=== PATIENT | male | born 1985 | race Caucasian/White ===

== ENCOUNTER 2017-08-28 06:26 | Day surgery (SDC) | payer OTHER ==
[2017-08-28] MEDS: BUPIVACAINE 0.5% (MPF) 30 ML INJ EPI
[2017-08-28] MEDS ORDERED: SOD CHLORIDE 0.9% 1,000 ML IV (08:00)
[2017-08-28] MEDS ORDERED: CEFAZOLIN 2 GM/50 ML (PMX) 50 ML IVPB (08:00)
[2017-08-28 09:44] LABS: ADD MAN DIFF? NO; BASOPHILS % 0.4 % (0.0-2.0); EOSINOPHILS # 0.1 10^3/ul (0.0-0.5); HEMATOCRIT 41.4 % (42.0-52.0); HEMOGLOBIN 13.9 g/dl (14.0-18.0); LYMPHOCYTES # 2.4 10^3/ul (0.8-2.9); LYMPHOCYTES % 34.8 % (15.0-51.0); MEAN CORPUSCULAR HEMOGLOBIN 29.1 pg (29.0-33.0); MEAN CORPUSCULAR HGB CONC 33.6 g/dl (32.0-37.0); MEAN CORPUSCULAR VOLUME 86.8 fl (82.0-101.0); MEAN PLATELET VOLUME 10.6 fl (7.4-10.4); MONOCYTE # 0.7 10^3/ul (0.3-0.9); MONOCYTES % 9.5 % (0.0-11.0); NEUTROPHIL # 3.6 10^3/ul (1.6-7.5); NEUTROPHILS % 52.9 % (39.0-77.0); PLATELET COUNT 226 10^3/UL (140-415); RED BLOOD COUNT 4.77 10^6/ul (4.70-6.10); RED CELL DISTRIBUTION WIDTH 12.7 % (11.5-14.5)
[2017-08-28 09:44] LABS: WHITE BLOOD COUNT 6.9 10^3/ul (4.8-10.8)
[2017-08-28 09:50] LABS: ALANINE AMINOTRANSFERASE 41 IU/L (13-69); ALBUMIN/GLOBULIN RATIO 1.25; ALKALINE PHOSPHATASE 97 IU/L (42-121); ANION GAP 14 (8-16); ASPARTATE AMINO TRANSFERASE 48 IU/L (15-46); BILIRUBIN,INDIRECT 0.2 mg/dl (0-1.1); BILIRUBIN,TOTAL 0.2 mg/dl (0.2-1.3); CARBON DIOXIDE 29 mmol/L (21-31); CHLORIDE 104 mmol/L (97-110); GLUCOSE 89 mg/dl (70-220); TOTAL PROTEIN 7.2 g/dl (6.1-8.1)
[2017-08-28 09:51] LABS: BLOOD UREA NITROGEN 9 mg/dl (7-20); CALCIUM 9.2 mg/dl (8.4-10.2); CREATININE 0.88 mg/dl (0.61-1.24); POTASSIUM 4.1 mmol/L (3.5-5.1); SODIUM 143 mmol/L (135-144)
[2017-08-28 09:57] LABS: INR 0.98; PARTIAL THROMBOPLASTIN TIME 30.6 Sec (25.0-35.0); PROTIME 13.1 Sec (11.9-14.9)
[2017-08-28] MEDS ORDERED: MIDAZOLAM 1 MG/ML 2 ML INJ ×4 (10:19→11:39)
[2017-08-28] MEDS ORDERED: ONDANSETRON 4 MG INJ (10:19)
[2017-08-28] MEDS ORDERED: EPHEDrine SULFATE 50 MG/5 ML SYG (10:19)
[2017-08-28] MEDS ORDERED: PROPOFOL 20 ML (10:19)
[2017-08-28] MEDS ORDERED: SUCCINYLCHOLINE CHLORIDE 100 MG/5 ML SYG IV (10:19)
[2017-08-28] MEDS ORDERED: FENTAnyl 50 MCG/ML VIAL (10:19)
[2017-08-28] MEDS ORDERED: ROCURONIUM 50 MG INJ (10:19)
[2017-08-28] MEDS ORDERED: METOCLOPRAMIDE 10 MG INJ (10:19)
[2017-08-28] MEDS ORDERED: HYDROCODONE/APAP (5/325) TAB PO (10:30)
[2017-08-28] MEDS ORDERED: CIPROFLOXACIN 400MG/D5W 200 ML (10:46)
[2017-08-28] MEDS ORDERED: CEFAZOLIN 1 GM INJ (10:49)
[2017-08-28] MEDS ORDERED: KETOROLAC 30 MG INJ (10:52)
[2017-08-28] MEDS ORDERED: BUPIVACAINE 0.5% (SDV) 30 ML INJ (11:15)
[2017-08-28] MEDS ORDERED: IBUPROFEN 600 MG TAB PO (12:00)
[2017-08-28] MEDS ORDERED: ONDANSETRON 4 MG INJ IV (12:30)
[2017-08-28] MEDS ORDERED: morphine (1 MG/ML) 10ML SYRINGE IV (12:30)
[2017-08-28] MEDS ORDERED: LABETALOL HCL 20MG INJ IV (12:30)
[2017-08-28] MEDS ORDERED: LORAZEPAM 2 MG INJ IV (12:30)
[2017-08-28] MEDS ORDERED: LEVALBUTEROL (NEB) 0.63 MG/3 ML AMP HHN (12:30)
[2017-08-28] MEDS ORDERED: MIDAZOLAM 1 MG/ML 2 ML INJ IV (12:30)
[2017-08-28] MEDS ORDERED: hydrALAzine 20 MG INJ IV (12:30)
[2017-08-28] MEDS ORDERED: OXYCODONE/ACETAMINOPHEN (5/325) TAB PO ×2 (12:30)
[2017-08-28] MEDS ORDERED: HYDROmorphONE 1 MG/5 ML IV SYRINGE IV ×2 (12:30)
== END 2017-08-28 15:54 | disposition home or self-care (01) ==
LOC: SDS 06:26
DX: K61.1 Rectal abscess (principal)
CPT/HCPCS: 46270; 80053; 85025; 85610; 85730; 88305

== ENCOUNTER 2017-12-18 09:57 | Day surgery (SDC) | payer OTHER ==
[2017-12-15 16:20] LABS: ADD MAN DIFF? NO
[2017-12-15 16:22] LABS: WHITE BLOOD COUNT 6.2 10^3/ul (4.8-10.8)
[2017-12-15 16:22] LABS: BASOPHILS % 0.3 % (0.0-2.0); EOSINOPHILS # 0.3 10^3/ul (0.0-0.5); EOSINOPHILS % 4.4 % (0.0-7.0); HEMATOCRIT 49.6 % (42.0-52.0); HEMOGLOBIN 16.3 g/dl (14.0-18.0); LYMPHOCYTES # 2.1 10^3/ul (0.8-2.9); LYMPHOCYTES % 33.9 % (15.0-51.0); MEAN CORPUSCULAR HEMOGLOBIN 28.6 pg (29.0-33.0); MEAN CORPUSCULAR HGB CONC 32.9 g/dl (32.0-37.0); MEAN PLATELET VOLUME 9.8 fl (7.4-10.4); MONOCYTE # 0.4 10^3/ul (0.3-0.9); MONOCYTES % 6.6 % (0.0-11.0); NEUTROPHIL # 3.4 10^3/ul (1.6-7.5); NEUTROPHILS % 54.5 % (39.0-77.0); PLATELET COUNT 227 10^3/UL (140-415)
[2017-12-15 16:39] LABS: INR 0.91; PROTIME 12.3 Sec (11.9-14.9)
[2017-12-15 16:40] LABS: PARTIAL THROMBOPLASTIN TIME 29.2 Sec (23.0-35.0)
[2017-12-15 16:45] LABS: ANION GAP 14 (8-16); BLOOD UREA NITROGEN 13 mg/dl (7-20); CALCIUM 9.5 mg/dl (8.4-10.2); CARBON DIOXIDE 29 mmol/L (21-31); CHLORIDE 101 mmol/L (97-110); CREATININE 0.94 mg/dl (0.61-1.24); GLUCOSE 92 mg/dl (70-220); POTASSIUM 4.5 mmol/L (3.5-5.1); SODIUM 139 mmol/L (135-144)
[2017-12-18] MEDS: LACTATED RINGER'S 1,000 ML IV* (06:00)
[2017-12-18] MEDS ORDERED: FENTAnyl 50 MCG/ML VIAL IV ×2 (12:00)
[2017-12-18] MEDS ORDERED: MEPERIDINE 25 MG INJ IV (12:00)
[2017-12-18] MEDS ORDERED: PROCHLORPERAZINE 10 MG INJ IV (12:00)
[2017-12-18] MEDS ORDERED: HYDROmorphONE 1 MG/5 ML IV SYRINGE IV ×3 (12:00)
[2017-12-18] MEDS ORDERED: DIPHENHYDRAMINE 50 MG INJ IV (12:00)
[2017-12-18] MEDS ORDERED: ONDANSETRON 4 MG INJ IV ×2 (12:00→13:30)
[2017-12-18] MEDS ORDERED: OXYCODONE/ACETAMINOPHEN (5/325) TAB PO ×3 (12:00→13:30)
[2017-12-18] MEDS ORDERED: LIDOCAINE 2% (SDV) 5 ML INJ (12:22)
[2017-12-18] MEDS ORDERED: MIDAZOLAM 1 MG/ML 2 ML INJ ×2 (12:22→12:35)
[2017-12-18] MEDS ORDERED: PROPOFOL 20 ML (12:22)
[2017-12-18] MEDS ORDERED: ONDANSETRON 4 MG INJ (12:33)
[2017-12-18] MEDS ORDERED: FAMOTIDINE 20 MG INJ (12:33)
[2017-12-18] MEDS ORDERED: CEFAZOLIN 1 GM INJ ×2 (12:33→12:40)
[2017-12-18] MEDS ORDERED: DEXAMETHASONE 4 MG/ML 1 ML INJ (12:33)
[2017-12-18] MEDS ORDERED: FENTAnyl 50 MCG/ML VIAL (12:35)
[2017-12-18] MEDS ORDERED: HYDROmorphONE 2 MG/ML SYG (12:49)
[2017-12-18] MEDS: LIDOCAINE 1%/EPI 30 ML INJ (13:25)
[2017-12-18] MEDS: BUPIVACAINE 0.5%/EPI (SDV) 30 ML INJ (13:25)
[2017-12-18] MEDS ORDERED: morphine 10 MG INJ (13:35)
[2017-12-18] MEDS: KETOROLAC 30 MG INJ IV (13:42)
[2017-12-18] MEDS: FENTAnyl 50 MCG/ML VIAL IV (14:05)
[2017-12-18] MEDS: morphine 2 MG INJ IV (14:34)
== END 2017-12-18 15:16 | disposition home or self-care (01) ==
LOC: SDS 09:57
DX: K60.3 Anal fistula (principal); K64.4 Residual hemorrhoidal skin tags
CPT/HCPCS: 46020; 80048; 85025; 85610; 85730; 88304